=== PATIENT | female | born 1965 | race Caucasian/White ===

== ENCOUNTER 2017-08-28 17:09 | Day surgery (SDC) | END 2017-08-28 20:55 | disposition home or self-care (01) ==

== ENCOUNTER 2018-11-24 19:54 | Emergency (ER) | payer OTHER ==
[~2018-11-24] VITALS: Ht 152.4 cm; Wt 63.3 kg
[~2018-11-24 19:54] MED LIST: DOCU-144 PO; HC30CR25 TOP; IBUP-727; [UNRECOGNIZED DRUG - CODE]
[2018-11-24 20:00] VITALS: Ht 152.4 cm; Wt 63.3 kg
[2018-11-24] MEDS ORDERED: SOD CHLORIDE 0.9% 1,000 ML IV STA (21:42)
[2018-11-24 23:00] VITALS: BP 117/81; PULSE 75; RESP 14
== END 2018-11-24 23:17 | disposition home or self-care (01) ==
LOC: E/R 19:54
DX: K62.5 Hemorrhage of anus and rectum (principal); R40.2142 Coma scale, eyes open, spontaneous, at arrival to emergency department; R40.2252 Coma scale, best verbal response, oriented, at arrival to emergency department; R40.2362 Coma scale, best motor response, obeys commands, at arrival to emergency department; I10 Essential (primary) hypertension
CPT/HCPCS: 36415; 80053; 83690; 85025; 96360; J7030; Z7502